=== PATIENT | male | born 1990 | race Caucasian/White ===

== ENCOUNTER 2021-01-09 14:01 | Emergency (ER) | payer SELFPAY ==
[2021-01-09] MEDS ORDERED: Ketorolac Tromethamine 30 MG/ML VIAL ONE (14:35)
== END 2021-01-09 15:21 | disposition home or self-care (01) ==
LOC: ERS 14:01
DX: M25.521 Pain in right elbow (principal); J45.909 Unspecified asthma, uncomplicated; F17.210 Nicotine dependence, cigarettes, uncomplicated
CPT/HCPCS: 96372; J1885